=== PATIENT | male | born 1985 | race Caucasian/White ===

== ENCOUNTER 2021-06-29 10:48 | Outpatient (CLI) | payer OTHER ==
[2021-06-29 13:48] LABS: Anion Gap 12 mmol/L (10-20); BUN (Urea Nitrogen) 18 mg/dL (8.9-20.6); Calc. Creatinine Clearance 0 mL/min (70-130); Calcium 9.2 mg/dL (7.8-10.44); Carbon Dioxide 27 mmol/L (22-29); Chloride 105 mmol/L (98-107); Glucose 84 mg/dL (70-105); Potassium 4.5 mmol/L (3.5-5.1); Sodium 139 mmol/L (136-145)
[2021-06-29 14:05] LABS: Hemoglobin 14.8 g/dL (13.5-17.5); Mean Corpuscular Hemoglobin 29.8 pg (27.0-33.0); Mean Corpuscular Volume 90.3 fl (81.2-95.1); Mean Platelet Volume 11.6 fl (7.4-10.4); Platelet Count 182 10x3/uL (150-450); RBC Distribution Width 12.1 % (11.5-14.5); Red Blood Cell (RBC) Count 4.96 10x6/uL (4.32-5.72); White Blood Cell (WBC) Count 3.9 10x3/uL (3.5-10.5)
[2021-06-29 14:54] LABS: Eosinophils 1 % (0-10); Lymphocytes 60 % (21-51); Monocytes 6 % (0-10); Reactive Lymphocytes 4 % (0-10)
[2021-06-29 14:55] LABS: Neutrophil 29 % (42-75)
[2021-06-29 14:56] LABS: MDiff Complete? YES; Platelet Morphology Comment Appears Adequate
[2021-06-29 14:57] LABS: RBC Morphology Normal
[2021-06-29 17:28] LABS: SARS-CoV-2 PCR by NAA Not Detected (NotDetected)
== END 2021-06-29 10:49 | disposition home or self-care (01) ==
LOC: LABBT 10:48
PROVIDERS: ATTEND Surgery
DX: Z01.812 Encounter for preprocedural laboratory examination (principal); K42.9 Umbilical hernia without obstruction or gangrene; Z20.822 Contact with and (suspected) exposure to COVID-19
CPT/HCPCS: 80048; 85025; U0003; U0005

== ENCOUNTER 2021-07-04 08:57 | Day surgery (SDC) | payer OTHER ==
[2021-07-03 10:37] VITALS: BMI 31.5
[2021-07-04] MEDS ORDERED: ceFAZolin 2 GM/DEX 5% 100 ML BAG ONE (10:44)
[2021-07-04] MEDS ORDERED: Lidocaine 1% w/Epinephrine 1:100K 20 ML VIAL ONE (11:58)
[2021-07-04] MEDS ORDERED: Bupivacaine 0.25% HCL 30 ML VIAL ONE (11:58)
[2021-07-04] MEDS ORDERED: Fentanyl 250 MCG/5 ML VIAL ONE (12:07)
[2021-07-04] MEDS ORDERED: Dexamethasone 20 MG/5 ML VIAL ONE (12:20)
[2021-07-04] MEDS ORDERED: PROPOFOL 200 MG/20 ML VIAL ONE (12:20)
[2021-07-04] MEDS ORDERED: Lidocaine 1% PF 5 ML VIAL ONE (12:20)
[2021-07-04] MEDS ORDERED: Ondansetron PF 4 MG/2 ML Vial ONE (12:20)
[2021-07-04] MEDS ORDERED: Fentanyl 100 MCG/2 ML VIAL ONE (13:20)
[2021-07-04] MEDS ORDERED: Meperidine HCl/PF 25 MG/ML VIAL ONE (13:23)
[2021-07-04] MEDS ORDERED: HYDROcodone/Acetaminophen 5/325 mg Tablet ONE ×2 (14:19→14:21)
== END 2021-07-04 15:11 | disposition home or self-care (01) ==
LOC: SDC 08:57
PROVIDERS: ATTEND Surgery
PROC: 0WUF0JZ Supplement Abdominal Wall with Synthetic Substitute, Open Approach (ICD-10-PCS; principal; 2021-07-04)
DX: K42.9 Umbilical hernia without obstruction or gangrene (principal)
CPT/HCPCS: C1889; J1100; J2175; J2405; J2704; J3010; S0020